=== PATIENT | female | born 1980 | race Caucasian/White ===

== ENCOUNTER 2023-08-04 10:03 | Outpatient (CLI) | payer BC, SELFPAY ==
--- NOTE | 2023-08-04 10:15 | MR_ITS ---
Patient: TOMMY MARSHALL Facility:?[facility] RIS Patient ID:?[id number] Site Patient ID:?[id number]. Site :?[id number] Study:?MRI-Head MRA W/O-08/04/2023 2:14:48 PM Ordering Physician:ANN SANTOS Final Report: EXAMINATION: MRA HEAD WITHOUT CONTRAST DATE: 08/04/2023. HISTORY: Patient with known brain aneurysm. TECHNIQUE: 3D TOF MRA of the head was performed. COMPARISON: CTA 10/02/2018. FINDINGS: There has been no interval change in the untreated 2.5mm right ophthalmic ICA aneurysm. There are no new aneurysms. The rest of the intracranial vasculature is unremarkable. 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 A follow-up MRA of the head in May 2028, 10 years after initial discovery, will be obtained. Ann Machado M.D. Neurointerventionalist [facility] Pager: Office/Appointments: Answering Service: [facility]: [email or web address] Dictated by: Ann Machado MD @ 08/04/2023 17:32:26 Signed by:?Ann Machado MD @08/04/2023 5:32:26 PM (Electronic Signature)
== END 2023-08-04 10:04 | disposition home or self-care (01) ==
PROVIDERS: PCP Student in an Organized Health Care Education/Training Program; Visit Provider Neurological Surgery
DX: I67.1 Cerebral aneurysm, nonruptured (principal)
CPT/HCPCS: 70544

== ENCOUNTER 2024-05-06 00:55 | Emergency (ER) | payer BC, SELFPAY ==
[2024-05-06] VITALS (8 sets, daily range): BP systolic 117–155; BP diastolic 74–84; PULSE 78–119; RESP 18–28; TEMP 37.1; O2SAT 96–98; BMI 37.2
--- NOTE | 2024-05-06 01:15 | ED.GENADULT ---
HPI - General Adult General Chief complaint: Chest Pain Stated complaint: chest pain Time Seen by Provider: 05/06/24 01:12 History of Present Illness HPI narrative: Pt states she was asleep when she suddenly awoke with severe chest pain that radiates to the back, diaphoresis, nausea, and couldn't breathe. Pt states this also happened one month ago. Pt states one week ago she started having pain in the roof of her mouth that feels like electrical shocks that go to the back of my head. Pt's states pt often has episodes of apnea at night. Pt was has an appointment with Wes to get a sleep study set up but is unable to be seen until the end of May. Pt very emotional throughout triage and states she has had hx of chronic pain and anxiety. Started on Lexapro 10 mg one month ago following one of these episodes. Dx stable brain aneurysm. 44-year-old woman presenting to the emergency department with concern of chest pain. Apparently woke from sleep with this. At one point was sweaty and just felt like she could not breathe heart rate was all the way up to 200. Associated appears to be pain in the mid and left chest. This is at least the 2nd similar episode. Has also been experiencing electrical shocks the back of head, left? sided but does not describe them radiating up over her scalp. apparently has been noting periods of apnea and she is scheduled for a sleep study but not until the end of May. She is just so tired of feeling; bad does not feel this way anymore. Related Data Home Medications ?Medication ?Instructions ?Recorded ?Confirmed baclofen .ROUTE PRN 05/06/24 digestive enzymes PO 05/06/24 docosahexaenoic acid PO 05/06/24 escitalopram oxalate 10 mg tablet 10 mg PO DAILY 05/06/24 05/06/24 (Lexapro) lorazepam .ROUTE 05/06/24 Allergies Allergy/AdvReac Type Severity Reaction Status Date / Time droperidol AdvReac Severe Agitated Verified 05/06/24 01:14 Review of Systems Status of ROS: Reports: 6 or more systems reviewed and unremarkable except as noted in History and below PFSH PFSH Social History Smoking Status: Unknown if ever smoked Exam Narrative: Exam Narrative: Pleasant. Clearly upset. Breathing easily. Lungs are clear. Neck is supple without lymphadenopathy or swelling. Heart is in an elevated rate but regular rhythm without murmur rub or gallop. Well-perfused peripherally. Area of discomfort in the neck/head appears to be about the left occipital insertion. Oropharynx is unremarkable. Extremities are well perfused without edema. Not able to reproduce chest pain. Abdomen is soft nontender. Const: Vital Signs, click to edit/add: Vital Signs - 24 hr 05/06/24 00:58 05/06/24 01:33 05/06/24 01:35 Temperature 98.8 F Pulse Rate 95 Pulse Rate [Pulse Oximeter] 119 H Respiratory Rate 28 H 18 Blood Pressure 138/82 Blood Pressure [Ri ght Upper Arm] 155/84 H Pulse Oximetry 98 98 98 Oxygen Delivery Me thod Room Air Room Air 05/06/24 02:02 05/06/24 02:32 05/06/24 03:02 Temperature Pulse Rate 79 89 78 Pulse Rate [Pulse Oximeter] Respiratory Rate 20 20 Blood Pressure 124/78 117/78 121/75 Blood Pressure [Ri ght Upper Arm] Pulse Oximetry 97 98 96 Oxygen Delivery Me thod Room Air 05/06/24 03:15 05/06/24 03:31 Temperature 98.8 F 98.8 F Pulse Rate Pulse Rate [Pulse Oximeter] 85 85 Respiratory Rate 20 20 Blood Pressure Blood Pressure [Ri ght Upper Arm] 124/74 124/74 Pulse Oximetry 96 Oxygen Delivery Me thod Room Air Documenting provider has reviewed patient's vital signs: yes Course Vital Signs Vital signs: Initial Vital Signs Temperature 98.8 F 05/06/24 00:58 Temperature Source Temporal Artery Scan 05/06/24 00:58 Pulse Rate 119 H 05/06/24 00:58 Respiratory Rate 28 H 05/06/24 00:58 Blood Pressure 155/84 H 05/06/24 00:58 Blood Pressure Mean 107 H 05/06/24 00:58 Blood Pressure Position Sitting 05/06/24 00:58 Pulse Oximetry 98 05/06/24 00:58 Oxygen Delivery Method Room Air 05/06/24 00:58 Vital Signs Temperature 98.8 F 05/06/24 00:58 Pulse Rate 119 H 05/06/24 00:58 Respiratory Rate 28 H 05/06/24 00:58 Blood Pressure 155/84 H 05/06/24 00:58 Pulse Oximetry 98 05/06/24 00:58 Oxygen Delivery Method Room Air 05/06/24 00:58 Temperature 98.8 F 05/06/24 03:31 Pulse Rate 85 05/06/24 03:31 Respiratory Rate 20 05/06/24 03:31 Blood Pressure 124/74 05/06/24 03:31 Pulse Oximetry 96 05/06/24 03:31 Oxygen Delivery Method Room Air 05/06/24 03:31 Medical Decision Making MDM Narrative Medical decision making narrative: I would monitor here on cardiac rn for potential tachyarrhythmia. Appears to be experiencing some discomfort that might be related to occipital neuralgia or at least in this area. Chest pain I do not think represents ischemic cardiovascular disease. May have had an attack of anxiety out of sleep possibly related to sleep apnea. Further questioning, had been prescribed propranolol but has not taken. Sounds to have been recommended for coping techniques for suspected flares of anxiety. Monitor here in the emergency department as noted. Will check labs for indication of cardiac injury or electrolyte abnormality that might be contributing to arrhythmia and otherwise evaluation for fatigue. Labs are reassuring with normal chemistries, hemoglobin, without evidence of cardiac injury. Chest x-ray independently reviewed by me looks to be with normal mediastinum and cardiac silhouette and without pneumothorax or infiltrate. Radiology over-read below TECHNIQUE: Chest radiograph 1 view COMPARISON: None FINDINGS: Mediastinum: The mediastinum is normal in appearance. The heart silhouette is normal in size and morphology. Lung: There is a 10 mm calcified granuloma present in the right lower lung zone. No sign of pleural effusion seen. No pneumothorax is identified. Bone and Soft tissue: Unremarkable for age. IMPRESSION: 1. No acute cardiopulmonary disease is seen. No events during time of monitoring in the emergency department. See patient discharge plan for further discussion Follow-up with this sleep study as scheduled. Return ZIO patch as recommended. Would anticipate results being available about a week after you drop it off. Yes I would use your propranolol, even up to 40 mg in a dose. After applying other coping techniques as you discussed and if not improved in 1-2 hours after taking medication, would then call or present for further evaluation. It appears that you may have some occipital neuralgia. Would inquire of this in primary care follow-up as a way to focus treatment. Continue to get quality and regular sleep. Be sure to get in a little heart pumping exercise daily. Medical Records Medical records reviewed: Yes I reviewed the patient's medical records Lab Data Lab results reviewed: Yes I reviewed the patient's lab results Labs: Lab Results 05/06/24 05/06/24 Range/Units 01:35 01:55 WBC 8.17 (4.50-11.00) K/uL RBC 4.81 (4.00-5.20) m/uL Hgb 14.0 (12.0-16.0) gm/dL Hct 41.8 (33.0-51.0) % MCV 87 (80-100) fL MCH 29 (26-34) pg MCHC 34 (32-36) gm/dL RDW Coeff of Wil 12.2 (11.5-15.5) % Plt Count 205 (140-440) K/uL Neut % (Auto) 67.3 (42.0-72.0) % Lymph % (Auto) 23.1 (20-44) % Pershing % (Auto) 7.6 (0.0-11.0) % Eos % (Auto) 1.5 (0.0-7.0) % Baso % (Auto) 0.4 (0.0-3.0) % Neut # (Auto) 5.50 (1.7-7.0) K/uL Lymph # (Auto) 1.89 (0.90-2.90) K/uL Pershing # (Auto) 0.60 (0.00-0.90) K/UL Eos # (Auto) 0.12 (0.00-0.50) K/uL Baso # (Auto) 0.03 (0.00-0.30) K/uL Abs Immat Gran (auto) 0.01 (0.00-0.30) K/uL Imm/Tot Granulo (auto) 0.1 % Sodium 140 (135-149) mmol/L Potassium 3.6 (3.6-5.1) mmol/L Chloride 109 (96-114) mmol/L Carbon Dioxide 24 (20-32) mmol/L Anion Gap 7 (7-15) mEq/L BUN 18 (5-24) mg/dL Creatinine 0.8 (0.5-1.5) mg/dL Estimated Creat Clear 74.23 Estimated GFR 93 ml/min Glucose 113 (60-115) mg/dL Calcium 8.6 (8.4-10.6) mg/dL Magnesium 2.2 (1.5-2.6) mg/dL Total Bilirubin 0.1 (0.1-1.5) mg/dL Direct Bilirubin 0.1 (0.0-0.5) mg/dL AST 14 (12-35) U/L ALT 17 (4-35) U/L Alkaline Phosphatase 56 (40-150) U/L Troponin I < 0.01 L (0.01-0.04) ng/mL NT-Pro-B Natriuret Pep 45 pg/mL Total Protein 6.3 (6.0-8.3) g/dL Albumin 3.8 (3.3-5.0) g/dL Lab Acknowledgement Test Added ECG Data Attestation: I personally reviewed and interpreted this ECG as follows: (Normal sinus rhythm at a rate of 97) Discharge Plan Discharge Clinical Impression: Atypical chest pain, Anxiety, Occipital neuralgia of left side Patient Disposition: Home w/ Parent or Adult Condition: Stable Additional Instructions: Follow-up with this sleep study as scheduled. Return ZIO patch as recommended. Would anticipate results being available about a week after you drop it off. Yes I would use your propranolol, even up to 40 mg in a dose. After applying other coping techniques as you discussed and if not improved in 1-2 hours after taking medication, would then call or present for further evaluation. It appears that you may have some occipital neuralgia. Would inquire of this in primary care follow-up as a way to focus treatment. Continue to get quality and regular sleep. Be sure to get in a little heart pumping exercise daily. Prescriptions: No Action escitalopram oxalate [Lexapro] 10 mg tablet 10 mg PO DAILY docosahexaenoic acid [Algal Walton-3 DHA] PO baclofen .ROUTE PRN lorazepam [Ativan] .ROUTE digestive enzymes PO Follow Up/Referrals: HADLEY BEE DO [Primary Care Provider] - Stand Alone Forms: [employer] Info Instructions
--- NOTE | 2024-05-06 01:33 | CRLHL7_ITS ---
For Patients: As a result of the Cures Act, medical imaging exams and procedure reports are released immediately into your electronic medical record. You may view this report before your referring provider. If you have questions, please contact your health care provider. INDICATION: Mid chest pressure TECHNIQUE: Chest radiograph 1 view COMPARISON: None FINDINGS: Mediastinum: The mediastinum is normal in appearance. The heart silhouette is normal in size and morphology. Lung: There is a 10 mm calcified granuloma present in the right lower lung zone. No sign of pleural effusion seen. No pneumothorax is identified. Bone and Soft tissue: Unremarkable for age. IMPRESSION: 1. No acute cardiopulmonary disease is seen. Dictated by Aureliano Cooley MD @ 05/06/2024 1:49:16 AM Dictated by: Aureliano Cooley MD @ 05/06/2024 01:49:20 (Electronically Signed)
[2024-05-06 01:43] LABS: Basophils Absolute Auto 0.03 K/uL (0.00-0.30); Basophils Percent Auto 0.4 % (0.0-3.0); Eosinophils Absolute Auto 0.12 K/uL (0.00-0.50); Eosinophils Percent Auto 1.5 % (0.0-7.0); Hematocrit 41.8 % (33.0-51.0); Immature Granulocytes Abs Auto 0.01 K/uL (0.00-0.30); Immature Granulocytes Pct Auto 0.1 %; Lymphocytes Absolute Auto 1.89 K/uL (0.90-2.90); Lymphocytes Percent Auto 23.1 % (20-44); Mean Corpuscular HGB Conc 34 gm/dL (32-36); Mean Corpuscular Hemoglobin 29 pg (26-34); Mean Corpuscular Volume 87 fL (80-100); Monocytes Percent Auto 7.6 % (0.0-11.0); Neutrophils Percent Auto 67.3 % (42.0-72.0); Platelet Count* 205 K/uL (140-440); RDW Coefficient of Variation % 12.2 % (11.5-15.5); Red Blood Count 4.81 m/uL (4.00-5.20); White Blood Count* 8.17 K/uL (4.50-11.00)
[2024-05-06 01:45] LABS: Slide Review Reflex No
[2024-05-06 01:55] LABS: Albumin* 3.8 g/dL (3.3-5.0); Chloride* 109 mmol/L (96-114); Sodium* 140 mmol/L (135-149)
[2024-05-06 01:56] LABS: Potassium* 3.6 mmol/L (3.6-5.1)
[2024-05-06 01:58] LABS: Alkaline Phosphatase* 56 U/L (40-150); Anion Gap 7 mEq/L (7-15); Aspartate Amino Transferase* 14 U/L (12-35); Bilirubin Direct* 0.1 mg/dL (0.0-0.5); Bilirubin Total* 0.1 mg/dL (0.1-1.5); Blood Urea Nitrogen* 18 mg/dL (5-24); Carbon Dioxide* 24 mmol/L (20-32); Creatinine* 0.8 mg/dL (0.5-1.5); Est. Creatinine Clearance* 74.23; Estimated Glomerular Filt Rate 93 ml/min; Glucose* 113 mg/dL (60-115); Total Protein* 6.3 g/dL (6.0-8.3)
[2024-05-06 01:59] LABS: Alanine Aminotransferase* 17 U/L (4-35); Calcium* 8.6 mg/dL (8.4-10.6)
[2024-05-06 02:06] LABS: Magnesium* 2.2 mg/dL (1.5-2.6)
[2024-05-06 02:19] LABS: NT Pro B Type NatriureticPept* 45 pg/mL; Troponin I* < 0.01 ng/mL (0.01-0.04)
== END 2024-05-06 03:31 | disposition home or self-care (01) ==
PROVIDERS: Emergency Provider Family Medicine; PCP Student in an Organized Health Care Education/Training Program
DX: R07.89 Other chest pain (principal); M54.81 Occipital neuralgia
CPT/HCPCS: 36415; 71045; 80048; 80076; 83735; 83880; 84484; 85025; 93005; 93246; 94761; 99284; 99285

== ENCOUNTER 2024-07-02 20:49 | Outpatient (CLI) | payer BC, SELFPAY | END 2024-07-02 20:50 | disposition home or self-care (01) | LOC: SLEEP 20:49 | PROVIDERS: PCP Student in an Organized Health Care Education/Training Program; Visit Provider Internal Medicine | DX: G47.33 Obstructive sleep apnea (adult) (pediatric) (principal) | CPT/HCPCS: 95810 ==

== ENCOUNTER 2024-07-26 15:15 | Outpatient (CLI) | payer BC, SELFPAY | END 2024-07-26 15:16 | disposition home or self-care (01) | LOC: NFLDREF 15:17 | PROVIDERS: PCP Student in an Organized Health Care Education/Training Program; Visit Provider Obstetrics & Gynecology | DX: R35.0 Frequency of micturition (principal) | CPT/HCPCS: 87086 ==

== ENCOUNTER 2025-04-01 12:59 | Outpatient (CLI) | payer BC, SELFPAY ==
--- NOTE | 2025-04-01 13:00 | CRLHL7_ITS ---
For Patients: As a result of the Cures Act, medical imaging exams and procedure reports are released immediately into your electronic medical record. You may view this report before your referring provider. If you have questions, please contact your health care provider. Indication: Chronic sinusitis Technique: Routine sinus CT protocol without IV contrast. Comparison: None Findings: Paranasal sinuses: The paranasal sinuses are well developed and aerated. Mild partially circumferential mucosal thickening in both maxillary sinuses. Minor scattered bilateral ethmoid sinus mucosal thickening without complete opacification. OMU and SER: Patent. Nasal cavity: No nasal mass lesions. Mild deviation nasal septum to the right. Bones: No facial fractures, deformities or bony lesions. Orbits: The globes are intact. No intra orbital abnormalities. Infratemporal fossa: Normal. Soft tissues: Normal. Intracranial contents: Normal visualized intracranial contents. Impression: 1. Mild patchy sporadic pattern bilateral maxillary and ethmoid sinus mucosal thickening. 2. No sinus or nasal obstruction. Please note that all CT scans at this facility use dose modulation, iterative reconstruction, and/or weight-based dosing when appropriate to reduce radiation dose to as low as reasonably achievable. Dictated by Santana Saravia MD @ 04/01/2025 1:34:10 PM (Electronically Signed)
== END 2025-04-01 13:00 | disposition home or self-care (01) ==
LOC: CT 13:01
PROVIDERS: PCP Student in an Organized Health Care Education/Training Program; Referring Provider Otolaryngology; Visit Provider Physician Assistant
DX: J32.9 Chronic sinusitis, unspecified (principal); J32.0 Chronic maxillary sinusitis; J32.2 Chronic ethmoidal sinusitis
CPT/HCPCS: 70486

== ENCOUNTER 2025-04-21 10:44 | Outpatient (CLI) | payer BC, SELFPAY ==
[2025-04-21 11:29] LABS: PCR FLU A Negative PCR FLU A (Negative); PCR FLU B Negative PCR FLU B (Negative); SARS PCR* POSITIVE SARS-CoV-2 (Negative)
== END 2025-04-21 10:45 | disposition home or self-care (01) ==
LOC: NFLDUCREF 10:44
PROVIDERS: PCP Student in an Organized Health Care Education/Training Program; Visit Provider Physician Assistant Surgical
DX: M79.10 Myalgia, unspecified site (principal)
CPT/HCPCS: 87636